=== PATIENT | male | born 1935 | race Hispanic/Latino ===

== ENCOUNTER 2017-11-09 13:15 | Outpatient (CLI) | payer MEDICARE ==
--- NOTE | 2017-11-09 14:25 | XRay Report ---
XRAY CHEST TWO VIEWS: 11/09/17 13:15:00 CLINICAL: Heart failure. COMPARISON: 10/25/15 FINDINGS: The heart is normal size and unchanged in size compared to prior exam. AICD lead in heart. Mild central vascular congestion.New right basal opacification with silhouetting of the right heart border and the right hemidiaphragm. Opacification of the right costophrenic angle. The left lung is normally expanded and clear. IMPRESSION: New right basal opacification.Suspect a small right pleural effusion with atelectasis. No pulmonary edema.
== END 2017-11-09 13:16 | disposition home or self-care (01) ==
LOC: SPVIMAG 13:15
PROVIDERS: ATTEND Internal Medicine
DX: I50.1 Left ventricular failure, unspecified (principal); R09.89 Other specified symptoms and signs involving the circulatory and respiratory systems
CPT/HCPCS: 71046

== ENCOUNTER 2017-11-16 15:19 | Outpatient (CLI) | payer MEDICARE ==
--- NOTE | 2017-11-16 15:48 | XRay Report ---
ROUTINE CHEST, TWO VIEWS: HISTORY: Right pleural effusion. Small right pleural effusion is not significantly changed since 11/09/17. No left pleural effusion. Minor compressive atelectasis is unchanged at the right lung base. Otherwise, the lungs are clear. Heart size and pulmonary vascularity are at the upper limits of normal. Single lead pacemaker remains in the same position. IMPRESSION: No change in the small right pleural effusion and right basilar atelectasis since 11/09/17.
== END 2017-11-16 15:20 | disposition home or self-care (01) ==
LOC: SPVIMAG 15:19
PROVIDERS: ATTEND Internal Medicine
DX: J90 Pleural effusion, not elsewhere classified (principal); J98.11 Atelectasis; Z95.0 Presence of cardiac pacemaker
CPT/HCPCS: 71046

== ENCOUNTER 2018-07-01 10:09 | Outpatient (CLI) | payer MEDICARE ==
[2018-07-01 10:56] LABS: Blood Urea Nitrogen 24 mg/dL (9-20)
--- NOTE | 2018-07-01 12:04 | Cat Scan Report ---
CT CHEST WITH CONTRAST: HISTORY: Lung cancer. COMPARISON: none. TECHNIQUE: Helical CT in 1.25mm intervals following IV contrast. Sagittal and coronal reformatted images. FINDINGS: Thyroid gland: Normal. Tracheobronchial tree: Normal. Esophagus: Normal. Heart: Mild cardiomegaly. A pacemaker is in position. Pericardium: Normal. Mediastinum: There are a few scattered mediastinal lymph nodes measuring up to 1 cm. No bulky adenopathy or mass. Lung Frost: No evidence for pulmonary nodule, mass or infiltrate. Pleural Spaces: Small complex right pleural effusion with pleural thickening is noted. Trace simple left pleural effusion. Musculoskeletal: Thoracic spondylosis. No bony lesion or fracture is identified. IMPRESSION: No evidence for recurrent or metastatic disease to the chest. Mild cardiomegaly. Bilateral pleural effusions as described.
== END 2018-07-01 10:10 | disposition home or self-care (01) ==
LOC: CT 10:09
PROVIDERS: ATTEND Internal Medicine
DX: I51.7 Cardiomegaly (principal); J90 Pleural effusion, not elsewhere classified; Z85.118 Personal history of other malignant neoplasm of bronchus and lung
CPT/HCPCS: 36415; 71260; 82565; 84520; Q9967